=== PATIENT | female | born 1980 | race Hispanic/Latino ===

== ENCOUNTER 2017-10-31 22:16 | Emergency (ER) | payer BC ==
[2017-10-31 22:38] VITALS: RESP 18
[2017-10-31] MEDS ORDERED: Tdap Vaccine 0.5 ml Vial (10-64 yrs) IM ONE ×2 (23:33→23:43)
--- NOTE | 2017-10-31 23:39 | ED PDOC ---
Syncope/Near Syncope/Dizziness Chief Complaint (Provider): syncope History Per: Patient, Family History/Exam Limitations: no limitations Onset/Duration Of Symptoms: Hrs (2) Activity At Onset Of Symptoms: Standing Seizure Or Post-ictal Symptoms: None Possible Causative Factor(s): Other (anxiety) Fall Associated With With Symptoms: Positive Injury Additional Complaint(s): 37 y/o female history of anxiety, panic attacks presents for evaluation of syncopal episode one hour prior to arrival. Patient states she has been under a lot of stress lately, and tonight starting thinking and starting feeling a panic attack coming on so she get out of bed to call for her sister and then fainted. Sister states patient fell forward and hit head on wood floor, was unresponsive for a few seconds and then woke up. Patient states she took two 0.5mg Ativan afterwards because she felt very shaken up and anxious after the episode. Patient reports frontal headache, and laceration to chin. Denies dizziness, nausea/vomiting, chest pain, shortness of breath, palpitations, changes in bowel movements, urinary symptoms, alcohol use. Patient states she has had a syncopal episode in setting of a panic attack in past. Denies suicidal/homicidal ideations. <Katie Santamaria - Last Filed: 11/01/17 02:45> <Abbey Hitchcock - Last Filed: 11/04/17 12:56> Time Seen by Provider: 10/31/17 22:57 Chief Complaint (Nursing): Syncope Supervising Attending Note - Supervising Attending Note The Documented history was done by the: Physician Parts Product Analyst The documented physical exam was done by the: Physician [employer] Product Analyst - Attestation: I have personally seen and examined this patient.: No I have fully participated in the care of the patient.: Yes I have reviewed all pertinent clinical information: Yes <Abbey Hitchcock - Last Filed: 11/04/17 12:56> Past Medical History Reviewed: Historical Data, Nursing Documentation, Vital Signs Vital Signs: Last Vital Signs Temp 98.6 F 10/31/17 22:34 Pulse 91 H 10/31/17 22:34 Resp 18 10/31/17 22:34 BP 133/83 10/31/17 22:34 Pulse Ox 100 10/31/17 22:34 - Medical History PMH: Anxiety - Surgical History Surgical History: No Surg Hx - Family History Family History: States: No Known Family Hx - Living Arrangements Living Arrangements: With Family - Social History Current smoker - smoking cessation education provided: No Alcohol: Social Drugs: Cannabis <RosalioKatie Angi - Last Filed: 11/01/17 02:45> Vital Signs: Last Vital Signs Temp 98.1 F 11/01/17 03:41 Pulse 78 11/01/17 03:41 Resp 18 11/01/17 03:41 BP 126/80 11/01/17 03:41 Pulse Ox 99 11/01/17 03:41 <Abbey Hitchcock - Last Filed: 11/04/17 12:56> - Allergies Allergies/Adverse Reactions: Allergies Allergy/AdvReac Type Severity Reaction Status Date / Time No Known Allergies Allergy Verified 10/31/17 22:34 Review of Systems ROS Statement: Except As Marked, All Systems Reviewed And Found Negative Skin: Positive for: Other (chin laceration) Neurological: Positive for: Headache <Becky Santamariaanda Angi - Last Filed: 11/01/17 02:45> Physical Exam - Reviewed Nursing Documentation Reviewed: Yes Vital Signs Reviewed: Yes - Physical Exam Appears: Positive for: Well, Non-toxic, Uncomfortable (anxious) Head Exam: Positive for: ATRAUMATIC, NORMAL INSPECTION, NORMOCEPHALIC Skin: Positive for: Normal Color Eye Exam: Positive for: Normal appearance, EOMI, PERRL ENT: Positive for: Normal ENT Inspection Cardiovascular/Chest: Positive for: Regular Rate, Rhythm Respiratory: Positive for: Normal Breath Sounds Gastrointestinal/Abdominal: Positive for: Normal Exam Back: Positive for: Normal Inspection Extremity: Positive for: Normal ROM Neurologic/Psych: Positive for: Alert, Oriented (x3) <Rosalio,Katie Angi - Last Filed: 11/01/17 02:45> - ECG ECG: Positive for: Viewed By Me (reviewed by ED attending) ECG Rhythm: Positive for: Sinus Rhythm O2 Sat by Pulse Oximetry: 100 - Progress ED Course And Treament: Patient refusing blood work at this time; states it will make her faint Agreeable to CT head, EKG, and Tetanus booster, and lac repair CT head impression: no acute intracranial abnormality 2:45 Patient resting comfortably; states she is feeling better and would like to be discharged at this time Patient educated on findings, advised suture removal 4-5 days Follow up PMD within 2 days Return precautions given Patient demonstrates full understanding of discharge instructions Patient requires no further intervention in the ED and is stable for discharge at this time <Katie Sanatmaria - Last Filed: 11/01/17 02:45> Disposition - Patient ED Disposition Is Patient to be Admitted: No Counseled Patient/Family Regarding: Studies Performed, Diagnosis, Need For Followup - Disposition Disposition: Routine/Home Disposition Time: 02:47 <Katie Santamaria - Last Filed: 11/01/17 02:45> <Abbey Hitchcock - Last Filed: 11/04/17 12:56> - Clinical Impression Clinical Impression: Syncope, Anxiety attack, Chin laceration - Disposition Condition: IMPROVED Additional Instructions: Suture removal 5 days Follow up PMD within 2 days Return to ED for worsening/concerning symptoms Instructions: Syncope (Fainting), Laceration Repair, Anxiety, Adult (DC) Forms: [employer] (Guyanese) Procedure: Wound Repair - Time Performed Time Performed: 01:30 - Time Out Time Out: Side verified, Site verified, Patient ID confirmed, Sterile procedures obs. - Consent Obtained Consent obtained: Verbal - Performed by Performed by: Mid-level Provider - Indications Indication(s):: Laceration - Location Location:: Chin Dimensions Length cm: 1.5cm Dimensions width cm: 0.4cm Depth:: Subcutaneous fascia - Debris Debris:: None - Irrigated Irrigated with ml of normal saline: 150mL - Complexity Complexity:: Simple (one layer) - Wound repair method Sutures:: # (3), Size (5'0), Type (prolene), Technique (interrupted) - Muscle repiar layer closed with Muscle repair layer closed with:: Dressing applied, Tetanus ordered - Patient tolerated procedure Patient Tolerated Procedure:: Well <Katie Santamaria - Last Filed: 11/01/17 02:45>
[2017-11-01] MEDS ORDERED: Lidocaine/Epi 1% 1:100000 20 ML IJ ONE (01:03)
[2017-11-01] MEDS ORDERED: Lidocaine 1% w Epi 1:100,000 Inj ONE (01:06)
[2017-11-01 03:42] VITALS: BP 126/80; PULSE 78; TEMP 98.1; O2SAT 99
--- NOTE | 2017-11-01 07:43 | CARD ---
APPROVED REPORT Date of service: 11/01/2017 EKG Measurement Heart [id number] <Conclusion> Normal sinus rhythm Nonspecific ST abnormality Abnormal ECG
--- NOTE | 2017-11-01 08:52 | CT ---
Date of service: 11/01/2017 PROCEDURE: CT HEAD WITHOUT CONTRAST. HISTORY: syncope, head injury COMPARISON: None available. TECHNIQUE: Axial computed tomography images were obtained through the head/brain without intravenous contrast. Radiation dose: Total exam DLP = 766.4 mGy-cm. This CT exam was performed using one or more of the following dose reduction techniques: Automated exposure control, adjustment of the mA and/or kV according to patient size, and/or use of iterative reconstruction technique. FINDINGS: HEMORRHAGE: No intracranial hemorrhage. BRAIN: No mass effect or edema. No atrophy or chronic microvascular ischemic changes. VENTRICLES: Unremarkable. No hydrocephalus. CALVARIUM: Unremarkable. PARANASAL SINUSES: Unremarkable as visualized. No significant inflammatory changes. MASTOID AIR CELLS: Unremarkable as visualized. No inflammatory changes. OTHER FINDINGS: None. IMPRESSION: No intracranial hemorrhage or mass effect. Concordant results (preliminary interpretation) provided by [facility].
== END 2017-11-01 03:42 | disposition home or self-care (01) ==
LOC: H.ER 22:16
DX: R55 Syncope and collapse (principal); S01.81XA Laceration without foreign body of other part of head, initial encounter; W19.XXXA Unspecified fall, initial encounter; Y92.89 Other specified places as the place of occurrence of the external cause; F41.0 Panic disorder [episodic paroxysmal anxiety]